=== PATIENT | female | born 1990 | race Two or more races ===

== ENCOUNTER 2023-08-07 18:15 | Emergency (ER) | payer OTHER ==
[~2023-08-07] VITALS: Ht 170.2 cm; Wt 56.2 kg
[2023-08-07] MEDS ORDERED: CEFTRIAXONE 1 G in IV D5W 50 ML IV ONE (19:00)
[2023-08-07] MEDS ORDERED: IV NS 0.9% 1,000 ML BAG IV ONE (19:00)
[2023-08-07] MEDS ORDERED: dexaMETHasone SOD PHOSPHATE 10 MG/ML VIAL IV ONE (19:00)
[2023-08-07] MEDS ORDERED: dexaMETHasone SOD PHOSPHATE 10 MG/ML VIAL ONE (19:07)
[2023-08-07] MEDS ORDERED: CEFTRIAXONE 1GM BAG (ER ONLY) 50 ML IV ONE (19:07)
[2023-08-07] MEDS ORDERED: TETRACAINE/BENZOCAINE/BUTAMBEN 56 GM SPRAY TP ONE (20:00)
[2023-08-07 20:29] VITALS: BP 112/75; TEMP 99.3; O2SAT 97
== END 2023-08-07 20:29 | disposition home or self-care (01) ==
LOC: ER 18:21
DX: J36 Peritonsillar abscess (principal)
CPT/HCPCS: 42700; 96365; 96375; 99284; J0696; J1100; J7030; J7060